=== PATIENT | male | born 1925 | race Caucasian/White ===

== ENCOUNTER → 2016-07-05 | Outpatient (CLI) | payer MEDICARE, OTHER ==
[~2016-07-05] MED LIST: ASPI325T6 PO; COLACE 100100 MG/CAP PO; EXCEDRIN1 TAB PO; MOBIC15 MG PO; NO HOME MEDICATIONS; NORCO 325 MG-51 TAB PO; ZOFRAN 4MG T4 MG/TAB PO; [UNRECOGNIZED DRUG - OTHER] PO
== END ==
LOC: COL.LAB 11:57
DX: Z96.642 Presence of left artificial hip joint (principal)

== ENCOUNTER → 2016-07-10 | Outpatient (REF) ==
[2016-07-10 12:03] LABS: ALBUMIN 3.4 gm/dL (3.5-5.0); BILIRUBIN,TOTAL 0.6 mg/dL (0.0-1.0); CALCIUM 8.5 mg/dL (8.4-10.2); CREATININE, serum 0.93 mg/dL (0.66-1.25); POTASSIUM 4.7 mmol/L (3.4-5.0)
[2016-07-10 12:15] LABS: TROPONIN-I 0.016 ng/mL (0.000-0.034)
== END ==
LOC: ZMSC 11:25
DX: Z01.89 Encounter for other specified special examinations (principal)

== ENCOUNTER 2016-07-11 10:39 | Inpatient (IN) | payer MEDICARE, OTHER ==
[2016-07-11] VITALS (29 sets, daily range): BP systolic 126–163; BP diastolic 65–97; PULSE 44–90; TEMP 97.7–98; O2SAT 94–100
[~2016-07-11] VITALS: Ht 182.9 cm; Wt 76.9 kg
[~2016-07-11 10:39] MED LIST changes: -ASPI325T6 PO; -COLACE 100100 MG/CAP PO; -EXCEDRIN1 TAB PO; -MOBIC15 MG PO; -NORCO 325 MG-51 TAB PO; -ZOFRAN 4MG T4 MG/TAB PO
[2016-07-11] MEDS ORDERED: EXCEDRIN1 TAB PO (11:23)
[2016-07-11] MEDS ORDERED: MOBIC15 MG PO ×2 (11:25→11:41)
[2016-07-11 11:33] LABS: BASO % 0.4 % (0.0-2.0); EOS # 0.1 (0.0-0.7); EOS % 0.9 % (0-4.0); GRAN # 7.3 (1.4-6.5); GRAN % 78.5 % (42.2-75.2); LYMPH % 10.3 % (20.0-51.0); MEAN CELL VOLUME 98 fl (80.0-100.0); MEAN CORPUSCULAR HGB CONC 33 g/dl (33.0-37.0); MEAN PLATELET VOLUME 9.9 fl (7.4-10.4); MONO # 0.9 (0.1-0.6); MONO % 9.5 % (1.7-9.3); PLATELET COUNT 246 K/mm3 (130-400); RED BLOOD COUNT 3.67 M/mm3 (4.20-5.60); REDCELL DISTRIBUTION WIDTH-CV 12.6 % (11.5-14.5); WHITE BLOOD COUNT 9.3 K/mm3 (4.8-10.8)
[2016-07-11 11:40] LABS: HEMATOCRIT 35.9 % (42.0-52.0); HEMOGLOBIN 11.8 g/dl (13.5-18.0); MEAN CORPUSCULAR HEMOGLOBIN 32 pg (27.0-31.0)
[2016-07-11] MEDS ORDERED: NORCO 325 MG-51 TAB PO (11:40)
[2016-07-11] MEDS ORDERED: COLACE 100100 MG/CAP PO (11:40)
[2016-07-11] MEDS ORDERED: ZOFRAN 4MG T4 MG/TAB PO (11:43)
[2016-07-11] MEDS ORDERED: ASPI325T6 PO (11:44)
[2016-07-11 11:47] LABS: ADJUSTED CALCIUM 8.8 mg/dL (8.4-10.2); ALBUMIN 3.5 gm/dL (3.5-5.0); BILIRUBIN,TOTAL 0.8 mg/dL (0.0-1.0); CALCIUM 8.4 mg/dL (8.4-10.2); CREATININE, serum 1.13 mg/dL (0.66-1.25); MAGNESIUM 1.9 mg/dL (1.6-2.3); POTASSIUM 4.1 mmol/L (3.4-5.0); TOTAL PROTEIN 6.3 gm/dL (6.4-8.2)
[2016-07-11 12:41] LABS: INR 1.2 (0.8-3.0); PROTHROMBIN TIME 13.8 SECONDS (9.7-12.8)
[2016-07-12 01:35] VITALS: BP 148/88; PULSE 71; TEMP 98.4
[2016-07-12 05:18] VITALS: BP 149/89; PULSE 83; TEMP 97.3
[2016-07-12 07:27] LABS: CALCIUM 8.1 mg/dL (8.4-10.2); CREATININE, serum 0.9 mg/dL (0.66-1.25); POTASSIUM 4.7 mmol/L (3.4-5.0)
[2016-07-12 10:39] VITALS: BP 160/87; PULSE 80; TEMP 98
[2016-07-12 13:41] VITALS: BP 100/35; PULSE 77; TEMP 98.1
[2016-07-12 17:32] VITALS: BP 115/59; PULSE 79; TEMP 98.1
[2016-07-12 21:24] VITALS: BP 143/72; PULSE 70; TEMP 98
[2016-07-13 05:16] VITALS: BP 148/80; PULSE 73; TEMP 97.9
[2016-07-13 07:31] LABS: CREATININE, serum 0.85 mg/dL (0.66-1.25); POTASSIUM 4.3 mmol/L (3.4-5.0)
[2016-07-13 09:21] VITALS: BP 110/67; PULSE 74; TEMP 97.2
[2016-07-13 12:04] VITALS: BP 110/67; PULSE 74; TEMP 97.2
== END 2016-07-13 13:00 | disposition swing bed (61) | DRG 243 ==
LOC: IMCU 10:39 → ICU 11:00 → SURG 15:20
PROVIDERS: Internal Medicine Cardiovascular Disease; Internal Medicine Nephrology
PROC: 0JH606Z Insertion of Pacemaker, Dual Chamber into Chest Subcutaneous Tissue and Fascia, Open Approach (ICD-10-PCS; principal; 2016-07-11)
PROC: 02H63JZ Insertion of Pacemaker Lead into Right Atrium, Percutaneous Approach (ICD-10-PCS; 2016-07-11)
PROC: 02HK3JZ Insertion of Pacemaker Lead into Right Ventricle, Percutaneous Approach (ICD-10-PCS; 2016-07-11)
DX: I44.1 Atrioventricular block, second degree (principal); N17.9 Acute kidney failure, unspecified; E44.0 Moderate protein-calorie malnutrition; N40.0 Benign prostatic hyperplasia without lower urinary tract symptoms; I25.2 Old myocardial infarction; I71.4 Abdominal aortic aneurysm, without rupture; Z95.5 Presence of coronary angioplasty implant and graft; Z96.642 Presence of left artificial hip joint; Z68.22 Body mass index [BMI] 22.0-22.9, adult
CPT/HCPCS: C1769; C1894; J0690; J2250; J3010; J7030

== ENCOUNTER → 2016-11-20 | Outpatient (CLI) | payer MEDICARE, OTHER ==
[~2016-11-20] MED LIST changes: +ASPI325T6 PO; +COLACE 100100 MG/CAP PO; +EXCEDRIN1 TAB PO; +MOBIC15 MG PO; +NORCO 325 MG-51 TAB PO; +ZOFRAN 4MG T4 MG/TAB PO
== END ==
LOC: COL.RAD 13:56
DX: M48.07 Spinal stenosis, lumbosacral region (principal); M51.27 Other intervertebral disc displacement, lumbosacral region; M43.16 Spondylolisthesis, lumbar region; M46.86 Other specified inflammatory spondylopathies, lumbar region; N28.1 Cyst of kidney, acquired